=== PATIENT | male | born 2000 | race Caucasian/White ===

== ENCOUNTER 2021-02-08 01:17 | Emergency (ER) | payer SELFPAY ==
[2021-02-08 01:57] VITALS: TEMP 98.9; BMI 29.7
[2021-02-08 02:05] VITALS: BP 126/77; PULSE 99
== END 2021-02-08 06:01 | disposition home or self-care (01) ==
LOC: JER 01:17
DX: F12.90 Cannabis use, unspecified, uncomplicated (principal); R11.2 Nausea with vomiting, unspecified
CPT/HCPCS: 82962; 99283-25